=== PATIENT | female | born 1945 | race Hispanic/Latino ===

== ENCOUNTER 2017-09-16 10:19 | Outpatient (CLI) | payer MEDICARE ==
--- NOTE | 2017-09-23 18:15 | Magnetic Resonance Report ---
MR scan of the cranium was performed without contrast. Pulse sequences included: 1. T1 weighted sagittal and axial images without contrast 2. T2 weighted axial and coronal images 3. FLAIR axial images 4. Diffusion-weighted axial images 5. Apparent diffusion coefficient images Views of the posterior fossa showed a normal craniocervical junction. Cerebellar pontine angles were normal with normal seventh-eighth nerve complexes. Brainstem and cerebellum were normal. The ventricular system showed no dilatation or distortion. Images of the hemispheres showed small areas of increased signal in the periventricular white matter most consistent with araiosis. Sinuses, flow voids in the tang[place] of [place], orbits, pituitary and basal ganglia were normal. Impression: Normal MR scan of the cranium without contrast except for minimal araiosis not likely to be clinically significant. At times white matter lesions like this may be associated with migraine.
== END 2017-09-16 10:20 | disposition home or self-care (01) ==
LOC: MRI 10:19
PROVIDERS: ATTEND Specialist
DX: G31.89 Other specified degenerative diseases of nervous system (principal); G93.89 Other specified disorders of brain
CPT/HCPCS: 70551

== ENCOUNTER 2018-10-22 12:34 | Outpatient (CLI) | payer MEDICARE ==
--- NOTE | 2018-10-22 16:30 | Mammography Report ---
BILATERAL DIGITAL SCREENING MAMMOGRAM with CAD : 10/22/18 12:34:00 CLINICAL: Routine screening. COMPARISON:09/24/15 FINDINGS: The breasts are heterogeneously dense, which may obscure small masses. No mass, architectural distortion or suspicious calcifications. IMPRESSION: No mammographic evidence of malignancy. BI-RADS CATEGORY: 2 -- Benign RECOMMENDATION: Routine mammographic screening in one year. COMMENT: Patient follow-up letters are generated by our [employer] application.
== END 2018-10-22 12:35 | disposition home or self-care (01) ==
LOC: SPVWC 12:34
PROVIDERS: ATTEND Internal Medicine
DX: Z12.31 Encounter for screening mammogram for malignant neoplasm of breast (principal)
CPT/HCPCS: 77067

== ENCOUNTER 2020-10-03 11:08 | Outpatient (CLI) | payer MEDICARE ==
--- NOTE | 2020-10-03 12:25 | Mammography Report ---
DIGITAL SCREENING MAMMOGRAM WITH CAD, 10/03/2020 CLINICAL INFORMATION / INDICATION: Routine screening mammography. TECHNIQUE: Digital bilateral 2D mammography was obtained in the craniocaudal and mediolateral obliqu e projections. This examination was interpreted with the benefit of Computer-Aided Detection analysis . COMPARISON: 09/24/2015, 10/22/2018 FINDINGS: Breast Density: The breasts are heterogeneously dense, which may obscure small masses. No dominant mass, suspicious calcifications, or architectural distortion in either breast. No interval change. IMPRESSION: No mammographic evidence of malignancy. Follow up recommendation: Routine yearly BI-RADS Category 1: Negative. A "normal" or negative report should not discourage follow up or biopsy of a clinically significant f inding. A written summary of these findings will be mailed to the patient. The patient will be entered into a mammography reporting system which will generate a reminder letter for the patient's next appointmen t at the appropriate interval. The [employer] recommends yearly mammograms starting at age 40 and continuing as l mirella as a woman is in good health. Breast MRI is recommended for women with an approximate 20-25% or greater lifetime risk of breast cancer, including women with a strong family history of breast or ova ap cancer or who have been treated for Hodgkin's disease. Signer Name: Brenda Velasco MD Signed: 10/03/2020 12:20 PM Workstation Name: [id number]
== END 2020-10-03 11:09 | disposition home or self-care (01) ==
LOC: SPVWC 11:08
PROVIDERS: ATTEND Internal Medicine
DX: Z12.31 Encounter for screening mammogram for malignant neoplasm of breast (principal)
CPT/HCPCS: 77067